=== PATIENT | male | born 1960 | race Caucasian/White ===

== ENCOUNTER 2016-07-26 17:30 | Inpatient (IN) | payer MEDICARE, MEDICAID ==
[2016-07-26] VITALS (23 sets, daily range): BP systolic 146–208; BP diastolic 75–110; PULSE 54–65; RESP 0–26; TEMP 98.4; O2SAT 90–98; Ht 182.9 cm; Wt 122.7 kg
[~2016-07-26] VITALS: Ht 182.9 cm; Wt 122.7 kg
[~2016-07-26 17:30] MED LIST: ACLI400A2 INH; ALBU1.252 INH; ARFO15VI2 IH; ASPI-558 PO; BACL10TA PO; DILT120C18 PO; DOXA2TAB46 PO; FURO20TA6 PO; GABA-305 PO; LANS30CA44 PO; LEVE1000 PO; LISI-126 PO; NAPR220T61 PO; OMEG1CAP79 PO; ONDA4TAB7 PO; POTA10TA93 PO; PRAV10TA26 PO; ROFL500T PO
--- OUTSIDE RECORDS SUMMARY | 2016-07-26 17:57 | XMS REPORT | Continuity of Care Document ---
Author Author [facility] Organization [facility] L[facility] Address Unknown Phone Unavailable Support Name Relationship Address Phone ALBERTINA CUEVA MD Caregiver [address] [place] [phone] CHANTAL YOUNG MD Caregiver [facility] [address] [facility] [address] [place] [id number] VIJAY GREEN Next Of Kin [address] [place] [address] CP Insurance Providers Payer Name Policy Number Subscriber Name Relationship Medicare [id number] Ezequiel Green 19 Self [facility] Plan [id number] Ezequiel Green 19 Self Advance Directives Directive Response Recorded Date/Time Advanced Directives Type None 08/27/13 10:34pm Ordered Resuscitation Status Full Code 08/27/13 9:09pm Problems Medical Problems Problem Onset Date Status ACUTE ON CHRONIC RESPIRATORY FAILURE 09/20/2010 Active ACUTE ON CHRONIC RESPIRATORY FAILURE Unknown Active ACUTE ON CHRONIC RESPIRATORY FAILURE Unknown Active Acute cor pulmonale 09/20/2010 Active Acute cor pulmonale Unknown Active Acute cor pulmonale Unknown Active Acute exacerbation of chronic obstructive airways disease 09/20/2010 Active Acute exacerbation of chronic obstructive airways disease Unknown Active Acute exacerbation of chronic obstructive airways disease Unknown Active CONTRACTION ALKALOSIS 09/20/2010 Active CONTRACTION ALKALOSIS Unknown Active CONTRACTION ALKALOSIS Unknown Active Chronic hypercapnic respiratory failure 09/20/2010 Active Chronic hypercapnic respiratory failure Unknown Active Chronic hypercapnic respiratory failure Unknown Active Obstructive sleep apnea syndrome 09/20/2010 Active Obstructive sleep apnea syndrome Unknown Active Obstructive sleep apnea syndrome Unknown Active Benign prostatic hypertrophy with outflow obstruction 09/20/2010 Active Benign prostatic hypertrophy with outflow obstruction Unknown Active Benign prostatic hypertrophy with outflow obstruction Unknown Active Cardiomyopathy 09/20/2010 Active Cardiomyopathy Unknown Active Cardiomyopathy Unknown Active Chronic osteoarthritis 09/20/2010 Active Chronic osteoarthritis Unknown Active Chronic osteoarthritis Unknown Active Diastolic heart failure 09/20/2010 Active Diastolic heart failure Unknown Active Diastolic heart failure Unknown Active Gastroesophageal reflux disease 09/20/2010 Active Gastroesophageal reflux disease Unknown Active Gastroesophageal reflux disease Unknown Active Obesity 09/20/2010 Active Obesity Unknown Active Obesity Unknown Active History of - peptic ulcer 09/20/2010 Resolved Exertional Dyspnea Unknown Active Intractable nausea and vomiting Unknown Active Intractable nausea and vomiting Unknown Active Intractable nausea and vomiting Unknown Active Chest pain Unknown Active Chest pain Unknown Resolved Hypertension Unknown Active Dyslipidemia Unknown Active Pulmonary hypertension Unknown Active Medications Medication Dose Route Sig Days/Qty Instructions Order Date Discontinued Date Status Diltiazem Hcl 1 Mg PO THREE TIMES A DAY 10/30/09 10/30/09 Discontinued Furosemide 80 Mg PO TWICE A DAY 03/13/10 09/19/10 Discontinued Doxazosin Mesylate 1 Mg PO BEDTIME 10/30/09 10/30/09 Discontinued Pravastatin Sodium 10 Mg PO BEDTIME 03/13/10 10/25/11 Discontinued Tramadol Hcl NEEDED 03/13/10 05/01/10 Discontinued Diltiazem Hcl 60 Tab PO FOUR TIMES DAILY 03/13/10 10/25/11 Discontinued Aspirin 1 Tab PO DAILY 10/30/09 03/13/10 Discontinued Ranitidine Hcl 150 Tab PO TWICE A DAY 03/13/10 09/19/10 Discontinued Fish Oil/Ryde-3 Fatty Acids 1 Cap PO DAILY 03/13/10 02/09/11 Discontinued Meloxicam 7.5 Mg PO 10/30/09 03/13/10 Discontinued Doxazosin Mesylate 2 Mg PO DAILY 03/13/10 10/25/11 Discontinued Levetiracetam 500 Mg PO TWICE A DAY 06/30/10 09/19/10 Discontinued Aspirin 81 Mg PO DAILY 06/30/10 02/09/11 Discontinued Fe Fumarate/Vit C/B12-If/Fa 6.8 Ml GT THREE TIMES A DAY 06/30/1010/24 Discontinued Levetiracetam 1,000 Mg PO TWICE A DAY 09/19/10 Active Ranitidine Hcl 300 Mg PO TWICE A DAY 09/19/10 02/09/11 Discontinued Ipratropium [place] 0.2 Mg IH FOUR TIMES DAILY 09/19/10 02/09/11 Discontinued Potassium Chloride 30 Meq PO DAILY 09/19/10 02/09/11 Discontinued Bumetanide 2 Mg PO TWICE A DAY 09/19/10 02/09/11 Discontinued Lansoprazole 30 Mg PO DAILY 02/09/11 11/03/12 Discontinued Hydrocodone Bit/Acetaminophen 1 Dose GT NEEDED 02/09/11 10/19/11 Discontinued Lisinopril 20 Mg PO DAILY 10/19/11 Active Potassium Chloride 10 Meq PO DAILY 10/25/11 Active Aspirin 81 Mg PO DAILY 10/25/11 Active [Doxazosin Mesyla2 M1] Mg 05/16/12 11/03/12 Discontinued [Dilt-Xr120 Mg] Mg 05/16/12 11/03/12 Discontinued [Potassium Chlo10 Meq] Meq 05/16/12 11/03/12 Discontinued [[id number] Mg] Mg 05/16/12 11/03/12 Discontinued [Egfktethhilm57 Mg] Mg 05/16/12 11/03/12 Discontinued [Jsurumbgxh55 Mg] Mg 05/16/12 11/03/12 Discontinued [Khdoqnsp190 Mcg] Mcg 05/16/12 11/03/12 Discontinued Diltiazem Hcl 120 Mg PO TWICE A DAY 11/03/12 Active Pravastatin Sodium 10 Mg PO DAILY 11/03/12 Active Ranitidine Hcl 150 Mg PO DAILY 11/03/12 Active Furosemide 20 Mg PO DAILY 11/03/12 Active Lansoprazole 30 Mg PO DAILY 04/26/13 Active Doxazosin Mesylate 2 Mg PO BEDTIME 04/26/13 Active Roflumilast 500 Mcg DAILY 04/26/13 Active Arformoterol Tartrate 15 Mcg IH DAILY 04/26/13 Active [tudorza] 400 Mcg INH TWICE A DAY 08/27/13 Active Albuterol Sulfate Every 6 Hours For ASTHMA 12/13/13 Active Azithromycin 1 Tab PO DAILY 6 Qty TAKE TWO TABLETS ON DAY ONE, 07/25/14 Active Prednisone 50 Mg PO GIVE WITH BREAKFAST 5 Qty 07/25/14 Active Social History Social History Problem Response Recorded Date/Time Hx Substance Use No 07/25/2014 1:12pm Hx Alcohol Use No 07/25/2014 1:12pm Has the pt used tobacco in the last 12 months No 12/13/2013 9:36pm Tobacco Usage none 12/14/2013 1:56pm Query Response Start Date Stop Date Smoking Status Never smoker Hospital Discharge Instructions No hospital discharge instructions. Plan of Care No plan of care. Functional Status Query Response Date Recorded Physical Hygiene Self July 25, 2014 1:12pm Disabilities Visual July 25, 2014 1:12pm Devices Used Glasses July 25, 2014 1:12pm Dressing Self July 25, 2014 1:12pm Ambulation Self July 25, 2014 1:12pm Diet Self July 25, 2014 1:12pm Mental Status Alert Oriented July 25, 2014 1:12pm Disabilities Visual July 25, 2014 1:12pm Devices Used Glasses July 25, 2014 1:12pm Physical Hygiene Self July 25, 2014 1:12pm Dressing Self July 25, 2014 1:12pm Ambulation Self July 25, 2014 1:12pm Diet Self July 25, 2014 1:12pm Allergies, Adverse Reactions, Alerts Allergen Type Severity Reaction Status Last Updated No Known Drug Allergies Allergy Unknown NONE Active 07/25/14 Immunizations Name Given Type Hx Influenza Vaccination Y 02/25 Historical Hx Pneumococcal Vaccination Y DEC 2010 Historical Hx Tetanus, Diptheria, Pertussis Y 2010 Historical Hx Influenza Vaccination Y 02/25 Historical Hx Tetanus, Diptheria, Pertussis Y 2010 Historical Vital Signs Acute Vital Signs Vital Response Date/Time Temperature (Fahrenheit) 97.1 deg F (96.8 - 99.1) Temperature (Calculated Celsius) 36.07218 degrees C (36.0 - 37.3) Pulse Rate (adult) 70 bpm (60 - 100) Respiratory Rate 16 breaths/min (10 - 20) O2 Sat by Pulse Oximetry 97 % (90 - 100) Oxygen Flow Rate 2 L/min Blood Pressure 117/58 mm Hg Height 6 ft 0 in Weight 250 lb Body Mass Index 33.0 kg/m^2 Results Test Source Date Result Interp. Ref. Range Comments Venous Blood Lactate July 25, 2014 1:57pm 2.1 MMOL/L N 0.6-2.2 Activated Partial Thromboplast Time December 13, 2013 7:08pm 31.7 SEC N 24 -36 Alanine Aminotransferase (ALT/SGPT) July 25, 2014 1:57pm 23 U/L N 21- 72 Albumin July 25, 2014 1:57pm 4.5 G/DL N 3.5-5.0 Albumin/Globulin Ratio July 25, 2014 1:57pm 1.3 RATIO N 1.1-2.2 Alkaline Phosphatase July 25, 2014 1:57pm 74 U/L N 38-126 Amylase Level August 28, 2013 8:47am 84 U/L DN 30-110 COMMENT Add on - blood already in lab Anion Gap July 25, 2014 1:57pm 17 MEQ/L H 5-15 Anisocytosis September 21, 2010 4:25am 1+ - Arterial Blood Base Excess April 25, 2013 7:16pm 2.3 MMOL/L H -2.0- 2.0 Arterial Blood HCO3 April 25, 2013 7:16pm 28 MEQ/L H 22-26 Arterial Blood Oxygen Content September 22, 2010 9:50am 5 - Arterial Blood Oxygen Saturation April 25, 2013 7:16pm 94.0 % L 95.0- 98.0 Arterial Blood Partial Pressure CO2 April 25, 2013 7:16pm 46 MMHG H 34-45 Arterial Blood Total CO2 April 25, 2013 7:16pm 29.2 MEQ/L H 23-27 Arterial Blood pH April 25, 2013 7:16pm 7.390 N 7.350-7.450 Arterial Blood pO2 at Patient Temp April 25, 2013 7:16pm 70 MMHG L 80 -100 Aspartate Amino Transf (AST/SGOT) July 25, 2014 1:57pm 24 U/L N 17-59 B-Type Natriuretic Peptide October 14, 2010 5:07pm < 15 PG/ML L 15-100 BUN/Creatinine Ratio July 25, 2014 1:57pm 18 RATIO N 6-26 Band Neutrophils # August 27, 2013 4:40pm 0.8 T/MM3 - Band Neutrophils % August 27, 2013 4:40pm 8.0 % H 0-6 Basophilic Stippling September 21, 2010 4:25am 1+ - Basophils # (Auto) July 25, 2014 1:57pm 0.0 T/MM3 N 0-0.2 Basophils # (Manual) August 27, 2013 4:40pm 0.0 T/MM3 N 0-0.2 Basophils % (Manual) August 27, 2013 4:40pm 0.0 % N 0-2 Basophils (%) (Auto) July 25, 2014 1:57pm 0.3 % N 0-2 Blood Gas Tidal Volume March 13, 2010 9:19pm Not Performed 0-1200 Blood Gas Vent Rate March 13, 2010 9:19pm Not Performed 0-30 Blood Urea Nitrogen July 25, 2014 1:57pm 16.0 MG/DL N 9-20 C. difficile Toxin B Gene (PCR) August 28, 2013 7:18am Negative - If Toxin A is clinically indicated, treat accordingly. Calcium Level July 25, 2014 1:57pm 8.9 MG/DL N 8.4-10.2 Calculated Osmolality July 25, 2014 1:57pm 275 MOSM/KG N 261-280 Carbon Dioxide Level July 25, 2014 1:57pm 25 MEQ/L N 22-30 Chemistry Specimen Hemolysis July 25, 2014 1:57pm < 15 0-25 0-25: No Hemolysis.26-70: Slight Hemolysis - can falsely elevate K and Urine Protein. 71-285: Moderate Hemolysis - can falsely elevate K, Troponin I, CA 19-9, PTH, CSF GLucose, and Urine Protein, and can falsely decrease Phenytoin. 286-999: Gross Hemolysis - can falsely elevate K, Troponin I, CA 19-9, PTH, CSF Glucose, and Urine Protine, and can falsely decrease Phenytoin. Recommend specimen recollection. Chloride Level July 25, 2014 1:57pm 101 MEQ/L N 98-107 Cholesterol Level 2011 5:00am 140 MG/DL N 132-199 Cholesterol/HDL Ratio 2011 5:00am 6.4 RATIO H 0-5.0 Conjugated Bilirubin May 16, 2012 3:26pm 0.00 MG/DL N 0.00-0.30 Creatine Kinase MB July 01, 2010 5:30pm 1.0 NG/ML N 0-3.4 Creatinine July 25, 2014 1:57pm 0.9 MG/DL N 0.8-1.5 D-Dimer April 25, 2013 7:05pm < 150 NG/ML 0-230 <224 NG/ML= PRESUMPTIVE NEGATIVE FOR PE OR DVT>224 NG/ML=ADDITIONAL EVALUATION FOR PE OR DVT RECOMMENDED Differential Total Cells Counted September 22, 2010 4:10am 100 % - Eosinophils # (Auto) July 25, 2014 1:57pm 0.2 T/MM3 N 0-0.5 Eosinophils # (Manual) August 27, 2013 4:40pm 0.0 T/MM3 N 0-0.5 Eosinophils % (Manual) August 27, 2013 4:40pm 0.0 % N 0-4 Eosinophils (%) (Auto) July 25, 2014 1:57pm 1.7 % N 0-4 Erythrocyte Sedimentation Rate July 15, 2009 11:13am 13 MM/HR N 0-15 Escherichia coli 0157 Antigen August 28, 2013 7:18am Negative - Has specimen been collected/obtained? Y Ferritin February 03, 2011 2:30pm 356 NG/ML N 17-464 Folate February 03, 2011 4:35pm 7.4 NG/ML N 2.76-20 NORMAL ADULT RANGE : 2.76->20 ng/mL Globulin July 25, 2014 1:57pm 3.5 G/DL N 2.4-3.6 Glomerular Filtration Rate Calc July 25, 2014 1:57pm 89 - Glucose Level July 25, 2014 1:57pm 87 MG/DL N 75-110 HDL Cholesterol Direct 2011 5:00am 22 MG/DL L 40-60 Hematocrit July 25, 2014 1:57pm 42.7 % N 41-53 Hemoglobin July 25, 2014 1:57pm 14.5 GM/DL N 13.5-17.5 Hypochromasia July 07, 2010 5:35am 1+ - Icterus Index July 25, 2014 1:57pm < 2 0-7 Immature Granulocyte # (Auto) July 25, 2014 1:57pm 0.02 T/MM3 N 0.00- 0.03 Immature Granulocyte % (Auto) July 25, 2014 1:57pm 0.2 % N 0.0-0.5 Influenza Type A Antigen July 25, 2014 1:57pm Negative - Negative for Flu A protein antigen. Assay sensitivity is90%. Influenza Type B Antigen July 25, 2014 1:57pm Negative - Negative for Flu B protein antigen. Assay sensitivity is90%. Ionized Calcium (Measured) October 19, 2007 12:54pm 0.95 MMM/L L 1.12-1.32 Iron Level February 12, 2010 10:45am 315 UG/DL H 49-181 LDL Cholesterol, Calculated 2011 5:00am 118 N 66-159 Lab Scanned Report May 01, 2013 8:20pm LAB RESULTS - SCANNED [id number] - Lipase December 13, 2013 7:08pm 121 U/L N 23-300 Lymphocytes # (Auto) July 25, 2014 1:57pm 2.6 T/MM3 N 1-4.8 Lymphocytes # (Manual) August 27, 2013 4:40pm 1.0 T/MM3 N 1-4.8 Lymphocytes % (Manual) August 27, 2013 4:40pm 9.0 % L 23-45 Lymphocytes (%) (Auto) July 25, 2014 1:57pm 22.4 % L 23-45 Magnesium Level November 02, 2009 5:15am 1.6 MG/DL N 1.6-2.3 Mean Corpuscular Hemoglobin July 25, 2014 1:57pm 30.7 UUG N 26-34 Mean Corpuscular Hemoglobin Concent July 25, 2014 1:57pm 34.0 GM/DL N 31-37 Mean Corpuscular Volume July 25, 2014 1:57pm 90.3 UM3 N 80-100 Mean Platelet Volume July 25, 2014 1:57pm 8.7 UM3 L 9.4-12.4 Monocytes # (Auto) July 25, 2014 1:57pm 0.8 T/MM3 N 0-0.8 Monocytes # (Manual) August 27, 2013 4:40pm 0.0 T/MM3 N 0-0.8 Monocytes % (Manual) August 27, 2013 4:40pm 0.0 % N 0-9.0 Monocytes (%) (Auto) July 25, 2014 1:57pm 7.0 % N 0-9.0 MB-Led-O-Type Natriuretic Peptide July 25, 2014 1:57pm 29 PG/ML N 0- 175 Rule in cut points: <50 years old=450; 50-75 years old=900; >75 years old=1800; When utilizing ProBNP rule-in cut points, adjustment for impaired renal function is typically not required. Neutrophils # (Auto) July 25, 2014 1:57pm 7.9 T/MM3 H 1.8-7.7 Neutrophils # (Manual) August 27, 2013 4:40pm 8.7 T/MM3 H 1.8-7.7 Neutrophils % (Manual) August 27, 2013 4:40pm 82.0 % H 33-66 Neutrophils (%) (Auto) July 25, 2014 1:57pm 68.4 % H 33-66 Oxygen Delivery Method (LAB) April 25, 2013 7:16pm Room air - Platelet Count July 25, 2014 1:57pm 188 T/MM3 N 130-400 Potassium Level July 25, 2014 1:57pm 4.0 MEQ/L N 3.6-5 Prealbumin October 30, 2009 7:15pm 16.7 MG/DL L 17.6-36.0 Prostate Specific Antigen May 21, 2009 11:05am 1.15 NG/ML N 0-4.0 Prothromb Time International Ratio December 13, 2013 7:08pm 1.06 N 0.81- 1.09 THERAPUTIC RANGE=2.00-3.00 FOR ANTI-THROMBOSIS THERAPUTIC RANGE=2.50- 3.50 FOR IMPLANTED VALVE RDW Standard Deviation July 25, 2014 1:57pm 40.7 FL N 36.9-50.2 Reactive Lymphocytes # August 27, 2013 4:40pm 0.1 T/MM3 H 0-0 Reactive Lymphocytes % August 27, 2013 4:40pm 1.0 % H 0-0 Red Blood Count July 25, 2014 1:57pm 4.73 M/MM3 N 4.50-5.90 Sodium Level July 25, 2014 1:57pm 143 MEQ/L N 134-144 Stool Occult Blood August 29, 2013 11:25am Negative - Has specimen been collected/obtained? Y Stool for White Cells August 28, 2013 7:18am Negative - Has specimen been collected/obtained? Y Thyroid Stimulating Hormone (TSH) February 03, 2011 4:35pm 0.63 MIU/L N 0.47-4.68 Total Bilirubin July 25, 2014 1:57pm 0.90 MG/DL N 0.20-1.30 Total Creatine Kinase July 01, 2010 5:30pm 62 U/L N 55-170 Total Protein July 25, 2014 1:57pm 8.0 G/DL N 6.3-8.2 Triglycerides Level 2011 5:00am 184 MG/DL H 40-160 Troponin I July 25, 2014 1:57pm < 0.012 ng/ml 0-0.12 Turbidity July 25, 2014 1:57pm < 20 0-20 Unconjugated Bilirubin May 16, 2012 3:26pm 0.50 MG/DL N 0.00-1.10 Urinalysis Comment July 25, 2014 2:50pm Microscopic not ind. - Has specimen been collected/obtained? Y Urine Bilirubin July 25, 2014 2:50pm Negative - Has specimen been collected/obtained? Y Urine Blood July 25, 2014 2:50pm Negative - Has specimen been collected/obtained? Y Urine Collection Type July 25, 2014 2:50pm Cleancatch-midstream - Has specimen been collected/obtained? Y Urine Color July 25, 2014 2:50pm Yellow - Has specimen been collected/obtained? Y Urine Culture Indicated May 19, 2009 10:58am Cult not set up - PLEASE CULTURE CRITERIA Urine Glucose (UA) July 25, 2014 2:50pm Negative - Has specimen been collected/obtained? Y Urine Hyaline Casts May 19, 2009 10:58am 3-5 /LPF - PLEASE CULTURE CRITERIA Urine Ketones July 25, 2014 2:50pm Negative - Has specimen been collected/obtained? Y Urine Leukocyte Esterase July 25, 2014 2:50pm Negative - Has specimen been collected/obtained? Y Urine Microscopic Not Indicated October 25, 2011 4:03pm Not indicated - Has specimen been collected/obtained? Y Urine Mucus May 19, 2009 10:58am Present - PLEASE CULTURE CRITERIA Urine Nitrite July 25, 2014 2:50pm Negative - Has specimen been collected/obtained? Y Urine Protein July 25, 2014 2:50pm Negative - Has specimen been collected/obtained? Y Urine RBC July 01, 2010 7:43pm 0-1 /HPF - Has specimen been collected/obtained? Y Urine Specific [place] July 25, 2014 2:50pm 1.015 - Has specimen been collected/obtained? Y Urine Sperm May 19, 2009 10:58am Present - PLEASE CULTURE CRITERIA Urine Squamous Epithelial Cells May 19, 2009 10:58am Few - PLEASE CULTURE CRITERIA Urine Turbidity July 25, 2014 2:50pm Clear - Has specimen been collected/obtained? Y Urine Urobilinogen July 25, 2014 2:50pm 0.2 EU/DL - Has specimen been collected/obtained? Y Urine WBC July 01, 2010 7:43pm 0-1 /HPF - Has specimen been collected/obtained? Y Urine pH July 25, 2014 2:50pm 5.5 - Has specimen been collected/ obtained? Y VLDL Cholesterol 2011 5:00am 36.8 MG/DL H 0-28 Vitamin B12 Level February 03, 2011 4:35pm 275 PG/ML N 239-931 White Blood Count July 25, 2014 1:57pm 11.5 T/MM3 H 4.5-11.0 Blood Culture Blood October 14, 2010 5:07pm NO GROWTH AFTER 5 DAYS Stool Culture Stool August 28, 2013 7:18am Gram Stain Eye-Cornea February 25, 2011 1:00pm Helicobacter pylori Rapid Urease Gastric Biopsy October 31, 2009 11:42am Gram Stain Finger-Left Index October 25, 2007 9:30am Name: EZEQUIEL GREEN Unit #: [id number] : [id number] Sex: M Loc / Svc: ED DOS: 07/25/14 Signed Report #: [id number] DIAGNOSTIC IMAGING REPORT TYPE OF EXAM: CHEST, PA & LATERAL Dictated By: AIRAM CASTRO MD INDICATION: ITS.REASON: cough, fever, dyspnea CHEST 2-VIEWS UPRIGHT (PA & LAT) COMPARISON: Compared to the prior study dated December 13, 2013 FINDINGS: The lungs are clear without evidence of focal abnormal airspace opacity. There is no pleural effusion or pneumothorax. The heart size, mediastinal contours and pulmonary vascularity are within normal limits. Mild to moderate spondylosis of the thoracic spine. IMPRESSION: No acute cardiopulmonary disease. . Procedures Procedure Status Date Provider(s) INJECT SPINE LUMBAR/SACRAL completed 07/01/14 FLUOROGUIDE FOR SPINE INJECT completed 07/01/14 269680"INJECTION, METHYLPREDNISOLONE ACETATE, 40 MG" completed 07/01/14 [id number]"LOW OSMOLAR CONTRAST MATERIAL, 100-199 MG/ML IODINE C completed Encounters Encounter Location Date/Time Departed Emergency Room [facility] 07/25/14 12:46pm Registered Clinic [facility] 07/01/14 1:30pm Recent Diagnosis
--- OUTSIDE RECORDS SUMMARY | 2016-07-26 17:58 | XMS REPORT | Continuity of Care Document ---
Author Author [facility] Organization [facility] Address Unknown Phone Unavailable Support Name Relationship Address Phone AARON FLORES MD Caregiver [facility] [address] [place] [address] , [address] [place] [address] JENNIFER MARRERO MD Caregiver [facility] [address] [place] [address] Unavailable CHANTAL YOUNG MD Caregiver [facility] [address] [place] [address] , [address] [place] [address] VIJAY GREEN Next Of Kin [address] [place] [address] CP Insurance Providers Payer Name Policy Number Subscriber Name Relationship Medicare [id number] Ezequiel Green 19 Self [facility] [id number] Ezequiel Green 19 Self Advance Directives Directive Response Recorded Date/Time Advanced Directives Type None 08/27/13 10:34pm Ordered Resuscitation Status Full Code 08/27/13 9:09pm Resuscitation Documents on File N UNKNOWN 12/13/13 9:33pm Chief Complaint and Reason for Visit Chief Complaint SHORTNESS OF BREATH,NAUSEA,MILD CHEST PAIN Reason for Visit Chest pain Chest pain Hypertension Dyslipidemia Pulmonary hypertension Problems Medical Problems Problem Onset Date Status [...] TWICE A DAY 03/13/10 09/19/10 Discontinued Fish Oil/Berwick-3 Fatty Acids 1 Cap PO DAILY 03/13/10 [...] TWICE A DAY 09/19/10 02/09/11 Discontinued Ipratropium Cuddy 0.2 Mg IH FOUR TIMES DAILY 09/19/10 [...] [Potassium Chlo10 Meq] Meq 05/16/12 11/03/12 Discontinued [[id number] Mg] Mg 05/16/12 11/03/12 Discontinued [Ppycigctgxte59 Mg] Mg 05/16/12 11/03/12 Discontinued [Ezwdxruirt99 Mg] Mg 05/16/12 11/03/12 Discontinued [Qqllvwkw271 Mcg] Mcg 05/16/12 11/03/12 Discontinued Diltiazem Hcl [...] Every 6 Hours For ASTHMA 12/13/13 Active Social History Social History Problem Response Recorded Date/Time Smoking Status Never smoker 08/27/2013 10:34pm Chewing Tobacco Status No 12/13/2013 7:55pm Hx Substance Use No 12/13/2013 7:55pm Hx Alcohol Use No 12/13/2013 7:55pm Has the pt used tobacco in the last 12 months No 12/13/2013 9:36pm Query Response Start Date Stop Date Smoking Status Former smoker Hospital Discharge Instructions Instructions: Care Instructions: Reason for Hospitalization: CP I was in the hospital because (patient own words): States,"I was having some chest pain and some shortness of breath." Discharge Diet: Heart Healthy Discharge Activity: No restrictions Follow Up Appointments: Dr. Flores in 1-2 weeks. Call [phone] for an appointment. Family doctor in 1-2 weeks. Condition at time of discharge: Good Care Plan Discharge Patient: Goal: Increase cardio excercise Patient Instructions: see patient instructions General Information: ALL OTHER PLAN OF CARE REMAINS THE SAME PREVIOUS New Scripts Called to Pharmacy: COQ10 200MG BY MOUTH DAILY ALLOPURINOL 200MG BY MOUTH DAILY LANTUS 8 UNITS PER INJECTION EVERY BEDTIME CALCIUM 600MG/VIT D 400 U- 1 TABLET BY MOUTH TWICE DAILY LISINOPRIL 20MG BY MOUTH DAILY Condition at time of discharge: Good Care Plan Discharge Patient: Patient Instructions: see patient instructions Discharge Patient: Patient Instructions: see patient instructions IN THE EVENT OF AN EMERGENCY, seek medical care at the nearest Emergency Room Condition at time of discharge: Good Care Plan Discharge Patient: Goal: Understand discharge plan Patient Instructions: see patient instructions see patient instructions Plan of Care Discharge Date 12/14/13 4:30pm Disposition 01 DISCHARGED HOME, SELF-CARE Instructions/Education Provided DI for Chest Pain Prescriptions See Medications Section Functional Status Query Response Date Recorded Physical Hygiene Self December 14, 2013 3:13pm Disabilities Visual December 14, 2013 3:13pm Devices Used Dentures Glasses December 14, 2013 3:13pm Dressing Self December 14, 2013 3:13pm Ambulation Self December 14, 2013 3:13pm Diet Self December 14, 2013 3:13pm Mental Status Alert Oriented December 14, 2013 3:13pm Disabilities Visual December 14, 2013 3:13pm Devices Used Dentures Glasses December 14, 2013 3:13pm Physical Hygiene Self December 14, 2013 3:13pm Dressing Self December 14, 2013 3:13pm Ambulation Self December 14, 2013 3:13pm Diet Self December 14, 2013 3:13pm Allergies, Adverse Reactions, Alerts Allergen Type Severity Reaction Status Last Updated No Known Drug Allergies Allergy Unknown NONE Active 12/13/13 Immunizations Name Given Type Hx Influenza Vaccination Y jun 2013 Historical Hx Pneumococcal Vaccination Y DEC 2010 Historical Hx Tetanus, Diptheria, Pertussis Y 2010 Historical Hx Influenza Vaccination Y jun 2013 Historical Hx Tetanus, Diptheria, Pertussis Y 2010 Historical Vital Signs Acute Vital Signs Vital Response Date/Time Temperature (Fahrenheit) 96.8 deg F (96.8 - 99.1) Pulse Rate (adult) 51 bpm (60 - 100) Respiratory Rate 18 breaths/min (10 - 20) O2 Sat by Pulse Oximetry 95 % (90 - 100) Oxygen Delivery Method Room Air Height 6 ft 0 in Weight 249 lb Body Mass Index 33.0 kg/m^2 Results Test Source Date Result Interp. Ref. Range Comments Activated Partial Thromboplast Time December 13, 2013 7:08pm 31.7 SEC N 24 -36 Alanine Aminotransferase (ALT/SGPT) December 13, 2013 7:08pm 25 U/L N 21- 72 Albumin December 13, 2013 7:08pm 4.3 G/DL N 3.5-5.0 Albumin/Globulin Ratio December 13, 2013 7:08pm 1.5 RATIO N 1.1-2.2 Alkaline Phosphatase December 13, 2013 7:08pm 72 U/L N 38-126 Amylase Level August 28, 2013 8:47am 84 U/L DN 30-110 COMMENT Add on - blood already in lab Anion Gap December 13, 2013 7:08pm 16 MEQ/L H 5-15 Anisocytosis September 21, 2010 [...] L 80 -100 Aspartate Amino Transf (AST/SGOT) December 13, 2013 7:08pm 21 U/L N 17-59 B-Type Natriuretic Peptide October 14, 2010 5:07pm < 15 PG/ML L 15-100 BUN/Creatinine Ratio December 13, 2013 7:08pm 15 RATIO N 6-26 Band Neutrophils # August 27, 2013 4:40pm 0.8 T/MM3 - Band Neutrophils % August 27, 2013 4:40pm 8.0 % H 0-6 Basophilic Stippling September 21, 2010 4:25am 1+ - Basophils # (Auto) December 13, 2013 7:08pm 0.0 T/MM3 N 0-0.2 Basophils # (Manual) August 27, 2013 4:40pm 0.0 T/MM3 N 0-0.2 Basophils % (Manual) August 27, 2013 4:40pm 0.0 % N 0-2 Basophils (%) (Auto) December 13, 2013 7:08pm 0.4 % N 0-2 Blood Gas Tidal Volume March 13, 2010 9:19pm Not Performed 0-1200 Blood Gas Vent Rate March 13, 2010 9:19pm Not Performed 0-30 Blood Urea Nitrogen December 13, 2013 7:08pm 16.0 MG/DL N 9-20 C. difficile Toxin B Gene (PCR) August 28, 2013 7:18am Negative - If Toxin A is clinically indicated, treat accordingly. Calcium Level December 13, 2013 7:08pm 8.4 MG/DL N 8.4-10.2 Calculated Osmolality December 13, 2013 7:08pm 277 MOSM/KG N 261-280 Carbon Dioxide Level December 13, 2013 7:08pm 25 MEQ/L N 22-30 Chemistry Specimen Hemolysis December 14, 2013 6:55am 17 N 0-25 0-25: No Hemolysis.26-70: Slight Hemolysis - [...] decrease Phenytoin. Recommend specimen recollection. Chloride Level December 13, 2013 7:08pm 101 MEQ/L N 98-107 Cholesterol Level 2011 5:00am 140 MG/DL N 132-199 Cholesterol/HDL Ratio 2011 5:00am 6.4 RATIO H 0-5.0 Conjugated Bilirubin May 16, 2012 3:26pm 0.00 MG/DL N 0.00-0.30 Creatine Kinase MB July 01, 2010 5:30pm 1.0 NG/ML N 0-3.4 Creatinine December 13, 2013 7:08pm 1.1 MG/DL N 0.8-1.5 D-Dimer April 25, 2013 7:05pm < 150 NG/ML 0-230 <224 NG/ML= PRESUMPTIVE NEGATIVE FOR PE OR DVT>224 NG/ML=ADDITIONAL EVALUATION FOR PE OR DVT RECOMMENDED Differential Total Cells Counted September 22, 2010 4:10am 100 % - Eosinophils # (Auto) December 13, 2013 7:08pm 0.1 T/MM3 N 0-0.5 Eosinophils # (Manual) August 27, 2013 4:40pm 0.0 T/MM3 N 0-0.5 Eosinophils % (Manual) August 27, 2013 4:40pm 0.0 % N 0-4 Eosinophils (%) (Auto) December 13, 2013 7:08pm 0.6 % N 0-4 Erythrocyte Sedimentation Rate July 15, 2009 11:13am 13 MM/HR N 0-15 Escherichia coli 0157 Antigen August 28, 2013 7:18am Negative - Has specimen been collected/obtained? Y Ferritin February 03, 2011 2:30pm 356 NG/ML N 17-464 Folate February 03, 2011 4:35pm 7.4 NG/ML N 2.76-20 NORMAL ADULT RANGE : 2.76->20 ng/mL Globulin December 13, 2013 7:08pm 2.8 G/DL N 2.4-3.6 Glomerular Filtration Rate Calc December 13, 2013 7:08pm 70 - Glucose Level December 13, 2013 7:08pm 145 MG/DL H 75-110 HDL Cholesterol Direct 2011 5:00am 22 MG/DL L 40-60 Hematocrit December 13, 2013 7:08pm 39.0 % L 41-53 Hemoglobin December 13, 2013 7:08pm 13.2 GM/DL L 13.5-17.5 Hypochromasia July 07, 2010 5:35am 1+ - Icterus Index December 13, 2013 7:08pm < 2 0-7 Immature Granulocyte # (Auto) December 13, 2013 7:08pm 0.01 T/MM3 N 0.00- 0.03 Immature Granulocyte % (Auto) December 13, 2013 7:08pm 0.1 % N 0.0-0.5 Influenza Type A Antigen August 27, 2013 4:40pm Negative - Negative for Flu A protein antigen. Assay sensitivity is90%. Influenza Type B Antigen August 27, 2013 4:40pm Negative - Negative for Flu B protein antigen. Assay sensitivity is90%. Ionized Calcium (Measured) October 19, 2007 12:54pm 0.95 MMM/L L 1.12-1.32 Iron Level February 12, 2010 10:45am 315 UG/DL H 49-181 LDL Cholesterol, Calculated 2011 5:00am 118 N 66-159 Lab Scanned Report May 01, 2013 8:20pm LAB RESULTS - SCANNED [id number] - Lipase December 13, 2013 7:08pm 121 U/L N 23-300 Lymphocytes # (Auto) December 13, 2013 7:08pm 1.8 T/MM3 N 1-4.8 Lymphocytes # (Manual) August 27, 2013 4:40pm 1.0 T/MM3 N 1-4.8 Lymphocytes % (Manual) August 27, 2013 4:40pm 9.0 % L 23-45 Lymphocytes (%) (Auto) December 13, 2013 7:08pm 17.8 % L 23-45 Magnesium Level November 02, 2009 5:15am 1.6 MG/DL N 1.6-2.3 Mean Corpuscular Hemoglobin December 13, 2013 7:08pm 30.3 UUG N 26-34 Mean Corpuscular Hemoglobin Concent December 13, 2013 7:08pm 33.8 GM/DL N 31-37 Mean Corpuscular Volume December 13, 2013 7:08pm 89.7 UM3 N 80-100 Mean Platelet Volume December 13, 2013 7:08pm 8.8 UM3 L 9.4-12.4 Monocytes # (Auto) December 13, 2013 7:08pm 0.8 T/MM3 N 0-0.8 Monocytes # (Manual) August 27, 2013 4:40pm 0.0 T/MM3 N 0-0.8 Monocytes % (Manual) August 27, 2013 4:40pm 0.0 % N 0-9.0 Monocytes (%) (Auto) December 13, 2013 7:08pm 7.8 % N 0-9.0 YZ-Isi-X-Type Natriuretic Peptide December 13, 2013 7:08pm 26 PG/ML N 0- 175 Rule in cut points: <50 years old=450; 50-75 years old=900; >75 years old=1800; When utilizing ProBNP rule-in cut points, adjustment for impaired renal function is typically not required. Neutrophils # (Auto) December 13, 2013 7:08pm 7.3 T/MM3 N 1.8-7.7 Neutrophils # (Manual) August 27, 2013 4:40pm 8.7 T/MM3 H 1.8-7.7 Neutrophils % (Manual) August 27, 2013 4:40pm 82.0 % H 33-66 Neutrophils (%) (Auto) December 13, 2013 7:08pm 73.3 % H 33-66 Oxygen Delivery Method (LAB) April 25, 2013 7:16pm Room air - Platelet Count December 13, 2013 7:08pm 167 T/MM3 N 130-400 Potassium Level December 13, 2013 7:08pm 4.0 MEQ/L N 3.6-5 Prealbumin October 30, 2009 7:15pm 16.7 MG/DL L 17.6-36.0 Prostate Specific Antigen May 21, 2009 11:05am 1.15 NG/ML N 0-4.0 Prothromb Time International Ratio December 13, 2013 7:08pm 1.06 N 0.81- 1.09 THERAPUTIC RANGE=2.00-3.00 FOR ANTI-THROMBOSIS THERAPUTIC RANGE=2.50- 3.50 FOR IMPLANTED VALVE RDW Standard Deviation December 13, 2013 7:08pm 41.2 FL N 36.9-50.2 Reactive Lymphocytes # August 27, 2013 4:40pm 0.1 T/MM3 H 0-0 Reactive Lymphocytes % August 27, 2013 4:40pm 1.0 % H 0-0 Red Blood Count December 13, 2013 7:08pm 4.35 M/MM3 L 4.50-5.90 Sodium Level December 13, 2013 7:08pm 142 MEQ/L N 134-144 Stool Occult Blood August 29, 2013 11:25am Negative - Has specimen been collected/obtained? Y Stool for White Cells August 28, 2013 7:18am Negative - Has specimen been collected/obtained? Y Thyroid Stimulating Hormone (TSH) February 03, 2011 4:35pm 0.63 MIU/L N 0.47-4.68 Total Bilirubin December 13, 2013 7:08pm 0.70 MG/DL N 0.20-1.30 Total Creatine Kinase July 01, 2010 5:30pm 62 U/L N 55-170 Total Protein December 13, 2013 7:08pm 7.1 G/DL N 6.3-8.2 Triglycerides Level 2011 5:00am 184 MG/DL H 40-160 Troponin I December 14, 2013 6:55am < 0.012 ng/ml 0-0.12 Turbidity December 13, 2013 7:08pm < 20 0-20 Unconjugated Bilirubin May 16, 2012 3:26pm 0.50 MG/DL N 0.00-1.10 Urinalysis Comment August 27, 2013 5:50pm Microscopic not ind. - Has specimen been collected/obtained? Y Urine Bilirubin August 27, 2013 5:50pm Negative - Has specimen been collected/obtained? Y Urine Blood August 27, 2013 5:50pm Trace-intact H - Has specimen been collected/obtained? Y Urine Collection Type August 27, 2013 5:50pm Voided-not cc-midstr - Has specimen been collected/obtained? Y Urine Color August 27, 2013 5:50pm Saira - Has specimen been collected /obtained? Y Urine Culture Indicated May 19, 2009 10:58am Cult not set up - PLEASE CULTURE CRITERIA Urine Glucose (UA) August 27, 2013 5:50pm Negative - Has specimen been collected/obtained? Y Urine Hyaline Casts May 19, 2009 10:58am 3-5 /LPF - PLEASE CULTURE CRITERIA Urine Ketones August 27, 2013 5:50pm Negative - Has specimen been collected/obtained? Y Urine Leukocyte Esterase August 27, 2013 5:50pm Negative - Has specimen been collected/obtained? Y Urine Microscopic Not Indicated October 25, 2011 4:03pm Not indicated - Has specimen been collected/obtained? Y Urine Mucus May 19, 2009 10:58am Present - PLEASE CULTURE CRITERIA Urine Nitrite August 27, 2013 5:50pm Negative - Has specimen been collected/obtained? Y Urine Protein August 27, 2013 5:50pm Negative - Has specimen been collected/obtained? Y Urine RBC July 01, 2010 7:43pm 0-1 /HPF - Has specimen been collected/obtained? Y Urine Specific [place] August 27, 2013 5:50pm >=1.030 H - Has specimen been collected/obtained? Y Urine Sperm May 19, 2009 10:58am Present - PLEASE CULTURE CRITERIA Urine Squamous Epithelial Cells May 19, 2009 10:58am Few - PLEASE CULTURE CRITERIA Urine Turbidity August 27, 2013 5:50pm Clear - Has specimen been collected/obtained? Y Urine Urobilinogen August 27, 2013 5:50pm 0.2 EU/DL - Has specimen been collected/obtained? Y Urine WBC July 01, 2010 7:43pm 0-1 /HPF - Has specimen been collected/obtained? Y Urine pH August 27, 2013 5:50pm 5.5 - Has specimen been collected/ obtained? Y VLDL Cholesterol 2011 5:00am 36.8 MG/DL H 0-28 Vitamin B12 Level February 03, 2011 4:35pm 275 PG/ML N 239-931 White Blood Count December 13, 2013 7:08pm 10.0 T/MM3 N 4.5-11.0 Blood Culture Blood October 14, 2010 5:07pm NO GROWTH AFTER 5 DAYS Stool Culture Stool August 28, 2013 7:18am Gram Stain Eye-Cornea February 25, 2011 1:00pm Helicobacter pylori Rapid Urease Gastric Biopsy October 31, 2009 11:42am Gram Stain Finger-Left Index October 25, 2007 9:30am Name: EZEQUIEL GREEN Unit #: [id number] : 1960 Sex: M [facility] [place] DOS: 12/13/13 Signed Report #: [id number] DIAGNOSTIC IMAGING REPORT TYPE OF EXAM: CHEST 1 VIEW Dictated By: GLO WAYNE MD INDICATION: ITS.REASON: CHEST PAIN CHEST 1 VIEW: Normal chest. No cardiopulmonary abnormalities. No pneumonia, interstitial edema, or failure. . Procedures No known history of procedures. Encounters Encounter Location Date/Time Discharged Inpatient [facility] 12/13/13 8:23pm Registered Clinic [facility] 10/16/13 9:47am Registered Clinic [facility] 09/30/13 1:54pm Registered Clinic [facility] 09/26/13 9:29am Recent Diagnosis Chest pain Chest pain Hypertension Dyslipidemia Pulmonary hypertension
--- OUTSIDE RECORDS SUMMARY | 2016-07-26 17:58 | XMS REPORT | Continuity of Care Document ---
Author Author [facility] Organization [facility] Address Unknown Phone Unavailable Support Name Relationship Address Phone SEPTEMBER, RADHA Tania DO Caregiver [address] [address] Unavailable JENNIFER CAMEJO DO Caregiver [address] [place] [address] Unavailable VIJAY GREEN Next Of Kin [address] [place] [address] CP Insurance Providers Guarantor Ezequiel Green Address [address] [place] [address] CP Email [email or web address] Payer [facility] Plan Policy Number [id number] Subscriber's Name Ezequiel Green Relationship 18 Self Effective Date 16 Expiration Date 16 Payer Medicare Policy Number [id number] Subscriber's Name Ezequiel Green Relationship 18 Self Advance Directives Directive Response Recorded Date/Time Advanced Directives Type None 08/27/13 10:34pm Ordered Resuscitation Status Full Code 08/27/13 9:09pm Chief Complaint and Reason for Visit Chief Complaint Low Back Pain or Injury Reason for Visit Inguinal hernia of left side without obstruction or gangrene Problems Active Problems Medical Problem Onset Date Status ACUTE ON CHRONIC RESPIRATORY FAILURE 09/20/2010 ACUTE ON CHRONIC RESPIRATORY FAILURE Unknown ACUTE ON CHRONIC RESPIRATORY FAILURE Unknown Acute cor pulmonale 09/20/2010 Acute Acute cor pulmonale Unknown Acute cor pulmonale Unknown Acute exacerbation of chronic obstructive airways disease 09/20/2010 Acute Acute exacerbation of chronic obstructive airways disease Unknown Acute exacerbation of chronic obstructive airways disease Unknown Benign prostatic hypertrophy with outflow obstruction 09/20/2010 Chronic Benign prostatic hypertrophy with outflow obstruction Unknown Benign prostatic hypertrophy with outflow obstruction Unknown CONTRACTION ALKALOSIS 09/20/2010 CONTRACTION ALKALOSIS Unknown CONTRACTION ALKALOSIS Unknown Cardiomyopathy 09/20/2010 Chronic Cardiomyopathy Unknown Cardiomyopathy Unknown Chest pain Unknown Acute Chest pain Unknown Resolved Chronic hypercapnic respiratory failure 09/20/2010 Acute Chronic hypercapnic respiratory failure Unknown Chronic hypercapnic respiratory failure Unknown Chronic osteoarthritis 09/20/2010 Chronic Chronic osteoarthritis Unknown Chronic osteoarthritis Unknown Diastolic heart failure 09/20/2010 Chronic Diastolic heart failure Unknown Diastolic heart failure Unknown Dyslipidemia Unknown Chronic Exertional Dyspnea Unknown Acute Gastroenteritis Unknown Acute Gastroesophageal reflux disease 09/20/2010 Chronic Gastroesophageal reflux disease Unknown Gastroesophageal reflux disease Unknown History of - peptic ulcer 09/20/2010 Resolved Hypertension Unknown Chronic Intractable nausea and vomiting Unknown Acute Intractable nausea and vomiting Unknown Acute Intractable nausea and vomiting Unknown Acute Obesity 09/20/2010 Chronic Obesity Unknown Obesity Unknown Obstructive sleep apnea syndrome 09/20/2010 Acute Obstructive sleep apnea syndrome Unknown Obstructive sleep apnea syndrome Unknown Pulmonary hypertension Unknown Chronic Past Problems Medical Problem Onset Date Acute exacerbation of chronic low back pain Unknown Inguinal hernia of left side without obstruction or gangrene Unknown Lightheaded Unknown Nausea Unknown Unsteadiness Unknown Medications Current Home Medications Medication Dose Units Route Directions Days Qty Instructions Start Date Aclidinium [place] (Tudorza Pressair) 30 Puff/Inhaler Inha 1 Puff Inhalation As Needed 03/27/15 Albuterol Sulfate 1.25 Mg/3 Ml Vial.neb 1 Vial Inhalation Every 6 Hours as needed for Asthma 12/13/13 Arformoterol Tartrate (Brovana) 15 Mcg/2 Ml Vial.neb. 1 Vial Inhalation Daily as needed for Prn Orders 04/26/13 Aspirin (Aspir 81) 81 Mg Tablet.dr 81 Mg Oral Daily 10/25/11 Baclofen 10 Mg Tablet 10 Mg Oral Twice A Day 01/05/16 Diltiazem Hcl (Diltiazem Er) 120 Mg Cap.sr.12h 120 Mg Oral Twice A Day 11/03/12 Doxazosin Mesylate 2 Mg Tablet 2 Mg Oral Bedtime 04/26/13 Furosemide (Lasix) 20 Mg Tablet 20 Mg Oral Daily 11/03/12 Gabapentin 600 Mg Tablet 600 Mg Oral Twice A Day 12/05/15 Lansoprazole (Prevacid) 30 Mg Capsule.dr 30 Mg Oral Twice A Day 04/26/13 Levetiracetam (Keppra) 1,000 Mg Tablet 1,000 Mg Oral Twice A Day 09/19/10 Lisinopril 20 Mg Tablet 20 Mg Oral Daily 10/19/11 Naproxen Sodium (Aleve) 220 Mg Tablet 440 Mg Oral Twice Daily With Meals 12/05/15 [place]-3/Dha/Epa/Fish Oil (Fish Oil 1,000 Mg Softgel) 1 Each Capsule 1,000 Mg Oral Twice A Day 03/27/15 Ondansetron (Zofran Odt) 4 Mg Tab.rapdis 4 Mg Oral Every 4-6 Hours Prn 10 Tablet Oral Disintegrating Tablet 01/05/16 Potassium Chloride 10 Meq Tablet.sa 10 Meq Oral Twice A Day 10/24 Pravastatin Sodium 10 Mg Tablet 10 Mg Oral Bedtime 11/03/12 Roflumilast (Daliresp) 500 Mcg Tablet 500 Mcg Oral Daily 04/26/13 Past Home Medications Medication Directions Ordered Status Aspirin (Aspir 81) 81 Mg Tablet.dr, 81 Mg Oral Daily 06/30/10 Discontinued Aspirin (Aspir 81) 81 Mg Tablet.dr, 1 Tab Oral Daily 10/30/09 Discontinued Bumetanide (Bumex) 2 Mg Tablet, 2 Mg Oral Twice A Day 09/19/10 Discontinued [id number] Mcg (Daliresp) 500 Mcg Tablet, Mcg 05/16/12 Discontinued Dilt-Xr120 Mg (Dilt-Xr) 120 Mg Capsule.cr, Mg 05/16/12 Discontinued Diltiazem Hcl (Diltiazem Er) 120 Mg Capsule.cr, 60 Tab Oral Four Times Daily 03/13/10 Discontinued Diltiazem Hcl 90 Mg Tablet, 1 Mg Oral Three Times A Day 10/30/09 Discontinued Doxazosin Mesyla2 M1 (Doxazosin Mesylate) 2 Mg Tablet, Mg 05/16/12 Discontinued Doxazosin Mesylate 2 Mg Tablet, 2 Mg Oral Daily 03/13/10 Discontinued Doxazosin Mesylate (Cardura) 1 Mg Tablet, 1 Mg Oral Bedtime 10/30/09 Discontinued Fe Fumarate/Vit C/B12-If/Fa (Ferocon Capsule) 1 Udcap Capsule, 6.8 Ml G Tube Three Times A Day 06/30/10 Discontinued Fish Oil/[place]-3 Fatty Acids (Fish Oil 1,000 Mg Capsule) 1 Cap Capsule, 1 Cap Oral Daily 03/13/10 Discontinued Furosemide (Lasix) 40 Mg Tablet, 80 Mg Oral Twice A Day 03/13/10 Discontinued Hydrocodone Bit/Acetaminophen (Lortab 7.5) 1 Udtab Tablet, 1 Dose G Tube As Needed 02/09/11 Discontinued Ipratropium [place] 0.2 Mg/Ml Solution, 0.2 Mg Inhalation Four Times Daily Discontinued Lansoprazole (Prevacid Solu-Tab) 30 Mg Tablet, 30 Mg Oral Daily 02/09/11 Discontinued [id number] Mg (Lansoprazole) 30 Mg Capsule.dr, Mg 05/16/12 Discontinued Levetiracetam (Keppra) 500 Mg Tablet, 500 Mg Oral Twice A Day 06/30/10 Discontinued [id number] Mg (Levetiracetam) 1000 Mg Tablet, Mg 05/16/12 Discontinued [id number] Mg (Lisinopril) 20 Mg Tablet, Mg 05/16/12 Discontinued Meloxicam (Mobic) 7.5 Mg Tablet, 7.5 Mg Oral 10/30/09 Discontinued Potassium Chlo10 Meq (Potassium Chloride) 10 Meq Capsule.sa, Meq 05/16/12 Discontinued Potassium Chloride (K-Dur) 20 Meq Tab.prt.sr, 30 Meq Oral Daily 09/19/10 Discontinued Pravastatin Sodium 10 Mg Tablet, 10 Mg Oral Bedtime 03/13/10 Discontinued Ranitidine Hcl 300 Mg Capsule, 300 Mg Oral Twice A Day 09/19/10 Discontinued Ranitidine Hcl 150 Mg Capsule, 150 Tab Oral Twice A Day 03/13/10 Discontinued Tramadol Hcl 50 Mg Tablet, As Needed 03/13/10 Discontinued Social History Social History Problem Response Recorded Date/Time Onset Date Status Hx Substance Use No 07/22/2016 7:31pm Not Applicable Not Applicable Hx Alcohol Use No 07/22/2016 7:31pm Not Applicable Not Applicable Has the pt used tobacco in the last 12 months No 12/13/2013 9:36pm Not Applicable Not Applicable Tobacco Usage none 12/14/2013 1:56pm Not Applicable Not Applicable Query Response Start Date Stop Date Smoking Status Never smoker Hospital Discharge Instructions No hospital discharge instructions. Plan of Care Discharge Date 07/22/16 10:20pm Disposition 01 DISCHARGED HOME, SELF-CARE Condition at Discharge Improved Instructions/Education Provided Inguinal Hernia (ED) Prescriptions See Medication Section Referrals JENNIFER CAMEJO DO Order Date: 1 Week Address: [address] [place] [address] [address] [place] [phone] Note: Additional Instructions/Education You have an inguinal hernia; there is no evidence of incarceration (stuck hernia) or infection at this time. Take naproxen as needed for pain. Follow up with your doctor for a referral to General Surgery. Care Plan and Goals Physician Care Plan Problem: Inguinal hernia Goal: Follow up with primary care provider Instructions: Take medications and follow care plan as discussed/written Functional Status No functional status results. Allergies, Adverse Reactions, Alerts Allergen Type Severity Reaction Status Last Updated No Known Drug Allergies Allergy Unknown NONE Active 07/22/16 Immunizations Query Response on File Recorded Date/Time Hx Influenza Vaccination Y 02/2507/25/14 1:12pm Hx Pneumococcal Vaccination Y DEC 2010 07/25/14 1:12pm Hx Tetanus, Diptheria, Pertussis Y 201007/25/14 1:12pm Hx Influenza Vaccination Y 02/2507/25/14 1:12pm Hx Tetanus, Diptheria, Pertussis Y 201007/25/14 1:12pm Influenza Vaccine Hx FALL 201507/22/16 7:31pm Vital Signs Acute Vital Signs Vital Response Date/Time Temperature (Fahrenheit) 98.8 deg F (96.8 - 99.1) 07/22/2016 10:20pm Temperature (Calculated Celsius) 37.99516 degrees C (36.0 - 37.3) 07/22/2016 10:20pm Pulse Rate (adult) 64 bpm (60 - 100) 07/22/2016 10:20pm Respiratory Rate 16 breaths/min (10 - 20) 07/22/2016 10:20pm O2 Sat by Pulse Oximetry 92 % (90 - 100) 07/22/2016 10:20pm Oxygen Flow Rate 2.00 L/min 07/22/2016 7:35pm Blood Pressure 177/80 mm Hg 07/22/2016 10:20pm Height (Feet) 6 feet 07/22/2016 6:49pm Height (Inches) 0 inches 07/22/2016 6:49pm Weight (Kilograms) 124.800 kg 07/22/2016 6:49pm Body Mass Index (BMI) 37.0 07/22/2016 6:49pm Results No known relevant diagnostic tests, laboratory data and/or discharge summary. Procedures No known history of procedures. Encounters Encounter Location Arrival/Admit Date Discharge/Depart Date Attending Provider Departed Emergency Room [facility] 07/22/16 6:42pm 07/22/16 10: 20pm RADHA PEREZ DO Recent Diagnosis
--- NOTE | 2016-07-26 18:19 | NUR ---
Admit Pt admitted as a direct admit from [facility]. Pt placed on 2L per NC and ABG's drawn stat. IV started in Right wrist in 1 stick. Pt dozes off easily if not spoken to. Appears apneic at times. Orders entered, noted, and carried out as able. Will continue to monitor.
[2016-07-26 18:29] LABS: BASOPHILS % (AUTO) 0.4 % (0-2); EOSINOPHILS # (AUTO) 0.2 T/MM3 (0-0.5); EOSINOPHILS % (AUTO) 3.1 % (0-4); HCT - HEMATOCRIT 42.4 % (41-53); HGB - HEMOGLOBIN 13.6 GM/DL (13.5-17.5); IMMATURE GRANULOCYTE # (AUTO) 0.01 T/MM3 (0.00-0.03); IMMATURE GRANULOCYTE % (AUTO) 0.1 % (0.0-0.5); LYMPHOCYTES # (AUTO) 1.8 T/MM3 (1-4.8); LYMPHOCYTES % (AUTO) 24.7 % (23-45); MEAN CORPUSCULAR HGB 29.8 UUG (26-34); MEAN CORPUSCULAR HGB CONC(MCHC 32.1 GM/DL (31-37); MEAN PLATELET VOLUME 8.8 UM3 (9.4-12.4); MONOCYTES # (AUTO) 0.5 T/MM3 (0-0.8); MONOCYTES % (AUTO) 6.9 % (0-9.0); NEUTROPHILS #(AUTO)-ABSOLUTE 4.7 T/MM3 (1.8-7.7); NEUTROPHILS % (AUTO) 64.8 % (33-66); RED BLOOD COUNT 4.56 M/MM3 (4.50-5.90); WBC - WHITE BLOOD COUNT 7.2 T/MM3 (4.5-11.0)
[2016-07-26 18:37] LABS: LACTATE - LACTIC ACID 0.9 MMOL/L (0.6-2.2)
[2016-07-26 18:38] LABS: ALBUMIN/GLOBULIN RATIO 1.1 RATIO (1.1-2.2); ALKALINE PHOSPHATASE 86 U/L (38-126); ALT (SGPT) 39 U/L (21-72); ANION GAP 7 MEQ/L (5-15); AST (SGOT) 31 U/L (17-59); BUN/CREATININE RATIO 19 RATIO (6-26); CALCIUM 8.8 MG/DL (8.4-10.2); CHLORIDE 102 MEQ/L (98-107); CO2 - CARBON DIOXIDE 34 MEQ/L (22-30); CREATININE 0.9 MG/DL (0.8-1.5); GLOMERULAR FILTRATION RATE 88; GLUCOSE 103 MG/DL (75-110); POTASSIUM 4.6 MEQ/L (3.6-5); SODIUM 143 MEQ/L (134-144); TOTAL PROTEIN 7.5 G/DL (6.3-8.2)
[2016-07-26] MEDS ORDERED: ALBUTEROL/IPRATROPIUM INHAL. 2.5mg-0.5mg/3ml Neb. AEROSOL SCH (19:00)
[2016-07-26] MEDS ORDERED: ENALAPRILAT 1.25 MG/ML IV ONE (19:00)
[2016-07-26 19:04] LABS: BLOOD, URINE TRACE-INTACT (NEGATIVE); COLOR,URINE YELLOW (YELLOW); LEUKOCYTE ESTERASE ,URINE NEGATIVE (NEGATIVE); NITRITE,URINE NEGATIVE (NEGATIVE); UROBILINOGEN,URINE 0.2 EU/DL (NORMAL)
[2016-07-26] MEDS: CEFTRIAXONE 1 G in NORMAL SALINE 100 ML IV SCH (19:06)
[2016-07-26] MEDS: LEVOFLOXACIN IV SCH (19:58)
[2016-07-26] MEDS: D5W IV SCH (19:58)
[2016-07-26] MEDS: LEVETIRACETAM 500 MG TABLET PO SCH (21:00)
[2016-07-26] MEDS: DILTIAZEM 120 MG PO SCH (21:00)
[2016-07-26] MEDS: ARFORMOTEROL 15 MCG/2 ML IPPB SCH (21:00)
[2016-07-26] MEDS: GABAPENTIN 600 MG TABLET PO SCH (21:00)
[2016-07-26] MEDS ORDERED: ARFORMOTEROL 15 MCG/2 ML AEROSOL SCH (21:00)
[2016-07-26] MEDS: DOXAZOSIN 2 MG TABLET PO SCH (21:00)
[2016-07-26 22:25] LABS: LACTATE - LACTIC ACID 1.7 MMOL/L (0.6-2.2)
[2016-07-26] MEDS: ALBUTEROL/IPRATROPIUM INHAL. 2.5mg-0.5mg/3ml Neb. IPPB SCH (22:52)
[2016-07-27] VITALS (50 sets, daily range): BP systolic 131–190; BP diastolic 68–94; PULSE 49–88; RESP 0–44; TEMP 97.9–98.4; O2SAT 82–97
[2016-07-27] MEDS: PANTOPRAZOLE 40 MG TABLET PO SCH (06:42)
--- NOTE | 2016-07-27 07:20 | NUR ---
Shift Summary Patient has slept well during the night with Cpap. No pain, nausea, or SOA reported. O2 on Cpap had to be increased from 2L to 4L to maintain 90%. BP has steadily decreased during the night and now are in the 140-150s/60-70s. HR has been in the 50s. Respiration rate has been 8-10 bpm during the night. Patient needs further education of disease process and importance of the Cpap at night
[2016-07-27 07:50] LABS: HCT - HEMATOCRIT 44.2 % (41-53); HGB - HEMOGLOBIN 14.5 GM/DL (13.5-17.5); MEAN CORPUSCULAR HGB 29.8 UUG (26-34); MEAN CORPUSCULAR HGB CONC(MCHC 32.8 GM/DL (31-37); MEAN CORPUSCULAR VOLUME 90.8 UM3 (80-100); MEAN PLATELET VOLUME 9.2 UM3 (9.4-12.4); RED BLOOD COUNT 4.87 M/MM3 (4.50-5.90)
[2016-07-27 08:01] LABS: ALBUMIN 4.1 G/DL (3.5-5.0); ALBUMIN/GLOBULIN RATIO 1.1 RATIO (1.1-2.2); ALKALINE PHOSPHATASE 67 U/L (38-126); ALT (SGPT) 37 U/L (21-72); ANION GAP 12 MEQ/L (5-15); AST (SGOT) 34 U/L (17-59); BUN/CREATININE RATIO 30 RATIO (6-26); CALCIUM 8.7 MG/DL (8.4-10.2); CHLORIDE 98 MEQ/L (98-107); CO2 - CARBON DIOXIDE 32 MEQ/L (22-30); CREATININE 0.7 MG/DL (0.8-1.5); GLOMERULAR FILTRATION RATE 118; GLUCOSE 143 MG/DL (75-110); POTASSIUM 4.9 MEQ/L (3.6-5); SODIUM 142 MEQ/L (134-144); TOTAL PROTEIN 7.7 G/DL (6.3-8.2)
[2016-07-27 08:05] LABS: BAND NEUTROPHILS # 0.2 T/MM3; LYMPHOCYTES # (MANUAL) 1.7 T/MM3 (1-4.8); MONOCYTES # (MANUAL) 0.1 T/MM3 (0-0.8); TOTAL CELLS COUNTED 100 %
[2016-07-27] MEDS: ROFLUMILAST 500 MCG TABLET PO SCH (08:12)
[2016-07-27] MEDS: DILTIAZEM 120 MG PO SCH ×2 (08:13→21:30)
[2016-07-27] MEDS: ASPIRIN 81 MG CHEWABLE TABLET PO SCH (08:13)
[2016-07-27] MEDS: GABAPENTIN 600 MG TABLET PO SCH ×2 (08:13→21:31)
[2016-07-27] MEDS: FUROSEMIDE 20 MG TABLET PO SCH (08:13)
[2016-07-27] MEDS: LEVETIRACETAM 500 MG TABLET PO SCH ×2 (08:13→21:31)
[2016-07-27] MEDS: LISINOPRIL 20 MG TABLET PO SCH (08:13)
[2016-07-27] MEDS: CEFTRIAXONE 1 G in NORMAL SALINE 100 ML IV SCH (08:14)
[2016-07-27] MEDS: ALBUTEROL/IPRATROPIUM INHAL. 2.5mg-0.5mg/3ml Neb. IPPB SCH ×4 (08:19→20:05)
[2016-07-27] MEDS: D5W IV SCH (08:58)
[2016-07-27] MEDS: LEVOFLOXACIN IV SCH (08:58)
[2016-07-27] MEDS: ARFORMOTEROL 15 MCG/2 ML IPPB SCH (10:17)
--- NOTE | 2016-07-27 10:18 | DI ---
Indication: ITS.REASON: type II resp failure, copd, alfredo Procedure: CHEST 1 VIEW: Encounter: Initial Comparison: 01/05/2016 Technique: A single portable AP chest radiograph was obtained. Findings: Lungs and airways: Normal lung volumes. No focal airspace consolidation. Normal pulmonary vasculature. Pleura: No pleural effusion or pneumothorax. Heart and mediastinum: Cardiomegaly. The great vessels are within normal limits. Osseous structures and soft tissues: No acute osseous abnormality is seen. Impression: No acute cardiopulmonary process. .
--- NOTE | 2016-07-27 10:59 | NUR ---
CHAGO ANDERS VISITED PT. CM EXPLAINED ROLE AND PROVIDED CONTACT INFORMATION. PT PLANS TO RETURN HOME WITH SPOUSE [place] [facility] PT HAS HOME CPAP AND HOME OXYGEN SUPPLIED BY [facility]. PT IS AWARE TO CONTACT CM IF NEEDS ARISE.
--- NOTE | 2016-07-27 12:20 | NUR ---
STATUS/TRANSFER PT A&OX3. VSS. TRANSFERRED PT TO MEDICAL UNIT TRANSPORTED BY WHEELCHAIR BY NT. REPORT GIVEN TO Abelardo MUSTAFA RN.
--- NOTE | 2016-07-27 15:12 | ECHOF ---
ECHOCARDIOGRAM DATE OF PROCEDURE July 27, 2016 This is a two-dimensional echo with spectral Doppler, color-flow and M-mode. It was obtained in a patient with shortness of air. Left atrium is mildly dilated. Left ventricular end-diastolic dimension is normal. Left ventricular wall thickness is normal. LV systolic function is normal with ejection fraction of 66%. Right atrium is normal. Right ventricle is normal. Aortic root dimension is normal. Mitral, aortic, tricuspid, pulmonary valves are morphologically normal with trace of tricuspid regurgitation, trace of aortic insufficiency and trace of pulmonary insufficiency with mild pulmonary hypertension with estimated pulmonary artery systolic pressure of 39. There is no pericardial effusion. IMPRESSION 1. Normal LV systolic function with ejection fraction of 66%. 2. Mild left atrial dilation. 3. Trace of tricuspid regurgitation with mild pulmonary hypertension with estimated pulmonary artery systolic pressure of 39. 4. Trace of aortic insufficiency. 5. Trace of pulmonary insufficiency. MTDD
--- NOTE | 2016-07-27 18:09 | NUR ---
shift status remains up in chair eats well o2 remains on denies any soa or chest pain at present.
[2016-07-27] MEDS: POTASSIUM CHLORIDE 10 MEQ TABLET PO SCH (18:14)
--- NOTE | 2016-07-27 18:31 | PNPDOC ---
Subjective Date DATE: 07/27/16 TIME: 18:22 Subjective She was seen and examined in the ICU today. He does appear improved. His PCO2 has come down. His mentation/cognition is clearing. He is still on oxygen by nasal cannula and is somewhat dyspneic but improved. He denies chest pain. He does have an echocardiogram pending. Objective Vital Signs Vital signs Vital Signs 07/27/16 07/27/16 07/27/16 07/27/16 06:30 06:45 07:00 07:15 Pulse 53 58 55 52 Resp 16 17 16 13 B/P 150/72 141/69 147/77 152/79 Pulse Ox 93 92 92 92 O2 Delivery CPAP CPAP CPAP CPAP O2 Flow Rate 4.00 4.00 4.00 4.00 07/27/16 07/27/16 07/27/16 07/27/16 07:30 07:45 08:00 08:00 Pulse 53 54 62 62 Resp 18 13 23 23 B/P 152/76 152/82 163/79 Pulse Ox 92 94 97 O2 Delivery Nasal Cannula Nasal Cannula Nasal Cannula O2 Flow Rate 2.00 2.00 2.00 07/27/16 07/27/16 07/27/16 07/27/16 08:10 08:10 08:15 08:25 Temp 97.9 Pulse 61 62 56 Resp 10 31 Pulse Ox 94 95 O2 Delivery Nasal Cannula 07/27/16 07/27/16 07/27/16 07/27/16 08:30 08:45 09:00 09:01 Pulse 67 68 64 72 Resp 26 19 16 33 B/P 153/69 Pulse Ox 95 94 94 93 O2 Delivery Nasal Cannula Nasal Cannula Nasal Cannula Nasal Cannula 07/27/16 07/27/16 07/27/16 07/27/16 09:15 09:30 09:45 10:00 Pulse 83 66 70 64 Resp 44 20 39 14 B/P 173/78 Pulse Ox 94 93 93 94 O2 Delivery Nasal Cannula Nasal Cannula Nasal Cannula Nasal Cannula 07/27/16 07/27/16 07/27/16 07/27/16 10:00 10:10 10:10 10:20 Pulse 64 62 70 Resp 14 14 B/P 173/78 Pulse Ox 94 94 O2 Delivery Nasal Cannula 07/27/16 07/27/16 07/27/16 07/27/16 11:00 12:02 12:50 12:50 Pulse 73 78 82 Resp 19 16 14 B/P 177/84 172/78 Pulse Ox 93 94 94 O2 Delivery Nasal Cannula Nasal Cannula O2 Flow Rate 2.00 07/27/16 07/27/16 07/27/16 07/27/16 13:03 16:20 16:20 16:34 Pulse 85 80 82 Resp 16 07/27/16 16:40 Temp 98.1 Pulse 83 Resp 14 B/P 142/71 Pulse Ox 91 O2 Delivery Nasal Cannula O2 Flow Rate 2.00 Telemetry Rhythm: Sinus Rhythm Height (Feet): 6 Height (Inches): 0.00 Weight (Kilograms): 123.200 General General Appearance: Alert, Obese, Cooperative Eyes (Brief) Eyes: FOUND: PERRL, NOT FOUND: scleral icterus Neck (Brief) Neck Brief: NOT FOUND: JVD, adenopathy, carotid bruits, thyromegaly Respiratory (Brief) Respiratory Brief: FOUND: clear all meraz, equal bilaterally, NOT FOUND: rales , wheezes Comments Greatly diminished Cardiovascular (Brief) Cardiac: FOUND: pedal edema, regular rate, regular rhythm, NOT FOUND: gallop, murmur Abdomen (Brief) Abdominal: FOUND: BS normo active x4, soft, tender, NOT FOUND: distended, hepatosplenomegaly Comments Morbidly obese Extremities (Brief) Extremity : Side: Bilateral Extremity Finding: FOUND: edema Lymphatic (Brief) Lymphatic Brief: NOT FOUND: adenopathy Musculoskeletal (Brief) Musculoskeletal Brief: NOT FOUND: deformity, loss of motion, spasm, tenderness Integumentary (Brief) Integumentary: FOUND: dry, pink, warm Neurologic (Brief) Neurologic: FOUND: cranial 2-12 intact, motor, other (slow cognition), sensory , NOT FOUND: facial droop, ptosis Psychiatric (Brief) Psychiatric: FOUND: oriented, NOT FOUND: alert, attentive, normal affect Laboratory Laboratory Laboratory Tests 07/27/16 07:37 Laboratory Tests 07/27/16 07:37 Microbiology Microbiology Microbiology Date/Time Source Procedure Growth Status 07/26/16 18:09 Peripheral/Iv Start Blood Culture - Preliminary CULTURE INITIATED - RESULTS PENDING Resulted 07/26/16 18:09 Peripheral/Iv Start Blood Culture - Preliminary CULTURE INITIATED - RESULTS PENDING Resulted Radiology Findings: Lungs and airways: Normal lung volumes. No focal airspace consolidation. Normal pulmonary vasculature. Pleura: No pleural effusion or pneumothorax. Heart and mediastinum: Cardiomegaly. The great vessels are within normal limits. Osseous structures and soft tissues: No acute osseous abnormality is seen. Impression: No acute cardiopulmonary process. . ECHOCARDIOGRAM DATE OF PROCEDURE July 27, 2016 This is a two-dimensional echo with spectral Doppler, color-flow and M-mode. It was obtained in a patient with shortness of air. Left atrium is mildly dilated. Left ventricular end-diastolic dimension is normal. Left ventricular wall thickness is normal. LV systolic function is normal with ejection fraction of 66%. Right atrium is normal. Right ventricle is normal. Aortic root dimension is normal. Mitral, aortic, tricuspid, pulmonary valves are morphologically normal with trace of tricuspid regurgitation, trace of aortic insufficiency and trace of pulmonary insufficiency with mild pulmonary hypertension with estimated pulmonary artery systolic pressure of 39. There is no pericardial effusion. IMPRESSION 1. Normal LV systolic function with ejection fraction of 66%. 2. Mild left atrial dilation. 3. Trace of tricuspid regurgitation with mild pulmonary hypertension with estimated pulmonary artery systolic pressure of 39. 4. Trace of aortic insufficiency. 5. Trace of pulmonary insufficiency. Assessment & Plan Problems: (1) Mental status change Status: Acute Qualifiers: Altered mental status type: stupor Qualified Codes: R40.1 - Stupor (2) CO2 narcosis Status: Acute (3) Type II respiratory failure Status: Acute Qualifiers: Chronicity: acute on chronic Qualified Codes: J96.22 - Acute and chronic respiratory failure with hypercapnia (4) ACUTE ON CHRONIC RESPIRATORY FAILURE Onset Date: 09/20/2010 Status: Acute (5) Obesity Onset Date: 09/20/2010 Status: Chronic (6) Obstructive sleep apnea syndrome Onset Date: 09/20/2010 Status: Chronic (7) Hypertension Status: Chronic Qualifiers: Hypertension type: essential hypertension Qualified Codes: I10 - Essential (primary) hypertension (8) Dyslipidemia Status: Chronic Code Status Full Code Hospital Course Summary Disclaimer The hospital course summary below is not to be considered part of the above Progress Note. Hospital Course Summary Patient is on IV steroids and back on his CPAP unit.I transferred him to the medical floor earlier today. If he continues to improve, I may discharge him to home with outpatient oral prednisone and CPAP; then outpatient follow-up JENNIFER CAMEJO DO Jul 27, 2016 18:25
[2016-07-27] MEDS ORDERED: ACETAMINOPHEN 325 MG TABLET PO PRN (21:15)
[2016-07-27] MEDS ORDERED: PRN ORDERS MC (21:15)
[2016-07-27] MEDS: DOXAZOSIN 2 MG TABLET PO SCH (21:30)
[2016-07-28] VITALS (7 sets, daily range): BP systolic 140–161; BP diastolic 71–91; PULSE 50–97; RESP 12–16; TEMP 96.1–99.4; O2SAT 92–96
--- NOTE | 2016-07-28 05:10 | NUR ---
Status Pt A/Ox3. Denied pain or SOA during shift. On home CPAP during sleeping hours. Began sleeping at approx. 0130 this morning. Up ad desiree in room. Pleasant and easy to work with. Will continue to monitor.
[2016-07-28] MEDS: PANTOPRAZOLE 40 MG TABLET PO SCH (06:34)
[2016-07-28] MEDS: ALBUTEROL/IPRATROPIUM INHAL. 2.5mg-0.5mg/3ml Neb. IPPB SCH ×3 (07:44→17:19)
[2016-07-28] MEDS: DILTIAZEM 120 MG PO SCH (08:54)
[2016-07-28] MEDS: ROFLUMILAST 500 MCG TABLET PO SCH (08:54)
[2016-07-28] MEDS: ASPIRIN 81 MG CHEWABLE TABLET PO SCH (08:54)
[2016-07-28] MEDS: LEVETIRACETAM 500 MG TABLET PO SCH (08:54)
[2016-07-28] MEDS: D5W IV SCH (08:55)
[2016-07-28] MEDS: LEVOFLOXACIN IV SCH (08:55)
[2016-07-28] MEDS: LISINOPRIL 20 MG TABLET PO SCH (08:55)
[2016-07-28] MEDS: FUROSEMIDE 20 MG TABLET PO SCH (08:55)
[2016-07-28] MEDS: GABAPENTIN 600 MG TABLET PO SCH (08:55)
[2016-07-28] MEDS: POTASSIUM CHLORIDE 10 MEQ TABLET PO SCH ×2 (08:55→18:04)
[2016-07-28] MEDS: CEFTRIAXONE 1 G in NORMAL SALINE 100 ML IV SCH (10:44)
--- NOTE | 2016-07-28 12:34 | NUR ---
CM CM IN TO VISIT PATIENT, HE IS A&O. NO FAMILY IS PRESENT IN ROOM. VERIFIED WITH PATIENT THAT THE DISCHARGE PLAN IS TO GO HOME AND HE ALREADY HAS CPAP AND HOME OXYGEN SET UP, HE AGREED. THIS CM CONTACT INFORMATION PROVIDED.
--- NOTE | 2016-07-28 14:19 | NUR ---
CM PATIENT CALLED CM REQUESTING CONTACT NUMBERS FOR OTHER OXYGEN PROVIDERS IN THE AREA. HE CURRENTLY HAS [facility] AND THEY BRING OUT EVERY 3 MONTHS, HE WOULD LIKE TO CONTACT OTHER PROVIDERS IN THE FUTURE. GIVEN CONTACT INFORMATION FOR [facility]
[2016-07-28] MEDS ORDERED: PRED20TA PO (18:17)
--- NOTE | 2016-07-28 18:19 | DSPDOC ---
Discharge Diagnoses Discharge Diagnoses (1) Type II respiratory failure (2) CO2 narcosis (3) Mental status change (4) ACUTE ON CHRONIC RESPIRATORY FAILURE (5) Obesity (6) Obstructive sleep apnea syndrome (7) Hypertension (8) Dyslipidemia Hospital Course Patient is on IV steroids and back on his CPAP unit.I transferred him to the medical floor earlier today. If he continues to improve, I may discharge him to home with outpatient oral prednisone and CPAP; then outpatient follow-up 07/28/16: Patient is markedly improved today. His PCO2 is down and his PO2 is back up. He is breathing much better and is clear and his mentation. His agrees. He is stable for discharge to home with outpatient follow-up. I will have him on prednisone 60 mg daily for 5 more days. Home Meds Active Scripts Prednisone (Prednisone) 20 Mg Tablet, 60 MG PO WB for 5 Days, #15 TAB 0 Refills Take 3 (20 mg) tablets, by mouth, once a day with breakfast. Prov:JENNIFER CAMEJO DO 07/28/16 Ondansetron (Zofran Odt) 4 Mg Tab.rapdis, 4 MG PO Q4-6HPRN, #10 TAB Oral Disintegrating Tablet Prov:ILA VELASCO [employer] E[employer]ICIENT [employer] DES[employer]ER 01/05/16 Reported Medications Baclofen (Baclofen) 10 Mg Tablet, 10 MG PO BID 01/05/16 Naproxen Sodium (Aleve) 220 Mg Tablet, 440 MG PO BIDWM 12/05/15 Gabapentin (Gabapentin) 600 Mg Tablet, 600 MG PO BID 12/05/15 [place]-3/Dha/Epa/Fish Oil (Fish Oil 1,000 mg Softgel) 1 Each Capsule, 1000 MG PO BID 03/27/15 Aclidinium [place] (Tudorza Pressair) 30 Puff/Inhaler Inha, 1 PUFF INH PRN 03/27/15 Albuterol Sulfate (Albuterol Sulfate) 1.25 Mg/3 Ml Vial.neb, 1 VIAL INH Q6H Y for ASTHMA 12/13/13 Arformoterol Tartrate (Brovana) 15 Mcg/2 Ml Vial.neb., 1 VIAL IH DAILY Y for PRN ORDERS 04/26/13 Roflumilast (Daliresp) 500 Mcg Tablet, 500 MCG PO DAILY 04/26/13 Doxazosin Mesylate (Doxazosin Mesylate) 2 Mg Tablet, 2 MG PO HS 04/26/13 Lansoprazole (Prevacid) 30 Mg Capsule.dr, 30 MG PO BID 04/26/13 Furosemide (Lasix) 20 Mg Tablet, 20 MG PO DAILY 11/03/12 Pravastatin Sodium (Pravastatin Sodium) 10 Mg Tablet, 10 MG PO HS 11/03/12 Diltiazem Hcl (Diltiazem Er) 120 Mg Cap.sr.12h, 120 MG PO BID 11/03/12 Aspirin (Aspir 81) 81 Mg Tablet.dr, 81 MG PO DAILY 10/25/11 Potassium Chloride (Potassium Chloride) 10 Meq Tablet.sa, 10 MEQ PO BID 10/25/11 Lisinopril (Lisinopril) 20 Mg Tablet, 20 MG PO DAILY 10/19/11 Levetiracetam (Keppra) 1,000 Mg Tablet, 1000 MG PO BID 09/19/10 Discharge Disposition Discharge to home Copies To 1: JENNIFER CAMEJO DO Follow up Condition at time of discharge: JENNIFER Beard DO Jul 28, 2016 18:19
--- NOTE | 2016-07-28 19:18 | NUR ---
discharge instructions reviewed with pt. davis pulled. dc per wc with .
== END 2016-07-28 18:45 | disposition home or self-care (01) | DRG 189 ==
LOC: CCU 17:30 → MED 07-27 12:10
PROVIDERS: ADMIT Internal Medicine; ATTEND Internal Medicine
PROC: 5A09457 Assistance with Respiratory Ventilation, 24-96 Consecutive Hours, Continuous Positive Airway Pressure (ICD-10-PCS; 2016-07-26)
PROC: B24BZZZ Ultrasonography of Heart with Aorta (ICD-10-PCS; principal; 2016-07-27)
DX: J96.22 Acute and chronic respiratory failure with hypercapnia (principal); J44.9 Chronic obstructive pulmonary disease, unspecified; G47.33 Obstructive sleep apnea (adult) (pediatric); E66.01 Morbid (severe) obesity due to excess calories; G40.909 Epilepsy, unspecified, not intractable, without status epilepticus; I10 Essential (primary) hypertension; E78.5 Hyperlipidemia, unspecified; Z79.82 Long term (current) use of aspirin; Z79.899 Other long term (current) drug therapy
CPT/HCPCS: 36415; 36600; 80053; 81003; 82803; 83605; 84484; 85007; 85025; 85027; 85379; 87040; 93005; 93306; 94640; 94664; 94761